=== PATIENT | male | born 1970 | race Caucasian/White ===

== ENCOUNTER 2020-09-07 06:53 | Emergency (ER) | payer BC ==
[2020-09-07] MEDS ORDERED: ONDANSETRON 4 MG/2 ML VIAL ONE (07:17)
[2020-09-07] MEDS ORDERED: MORPHINE 4 MG/ML SYR ONE (07:17)
[2020-09-07 07:26] LABS: Absolute Lymphocytes (CBC) 3.3 K/uL (0.7-4.9); Basophils % 0.8 % (0-1.3); Lymphocytes % 26.1 % (15.3-44.8); RBC Red Blood Cell Count 5.18 M/uL (4.33-5.43)
[2020-09-07] MEDS ORDERED: NA CHLORIDE 0.9% 1,000 ML ONE (07:28)
[2020-09-07 07:29] LABS: Albumin 3.4 g/dL (3.4-5.0); Bilirubin Direct 0.1 mg/dL (0-0.2); Bilirubin Total 0.3 mg/dL (0.2-1.0); Potassium 3.6 mmol/L (3.5-5.1); Protein, Total 6.9 g/dL (6.4-8.2)
[2020-09-07] MEDS ORDERED: MEPERIDINE HCL 50 MG/ML ONE (07:29)
[2020-09-07] MEDS ORDERED: HYDROMORPHONE HCL 1 MG/ML INJ ONE (08:00)
--- NOTE | 2020-09-07 08:28 | RAD REPORT ---
EXAM DESCRIPTION: CTAbdomen Pelvis W Contrast - 09/07/2020 7:31 am CLINICAL HISTORY: Abdominal pain. ABD PAIN COMPARISON: No comparisons TECHNIQUE: Biphasic CT imaging of the abdomen and pelvis was performed with 100 ml non-ionic IV cont rast. All CT scans are performed using dose optimization technique as appropriate and may include automated exposure control or mA/KV adjustment according to patient size. FINDINGS: There is significant motion artifact present. This limits the quality of the examination. The lung bases are clear. The liver, spleen, pancreas, adrenal glands and kidneys are within normal limits. No bowel obstruction, free air, free fluid or abscess. Moderate right-sided colonic stool retention. Appendix is somewhat challenging to localize but no secondary findings of inflammation in the right l ower quadrant. No evidence of significant lymphadenopathy. No suspicious bony findings. IMPRESSION: No acute intra-abdominal or pelvic finding within the limitations of significant motion artifact.
[2020-09-07 08:57] LABS: Basophils % 0.2 % (0-1.3); Hematocrit 41.2 % (39.6-49.0); Lymphocytes % 6.4 % (15.3-44.8); MPV 7.8 fL (7.6-11.3); RBC Red Blood Cell Count 4.93 M/uL (4.33-5.43)
--- NOTE | 2020-09-07 09:30 | ER ---
Nurse's Notes [facility] Name: Everett Kumar Age: 50 yrs Sex: Male : 1970 Arrival Date: 09/07/2020 Time: 06:54 Bed 4 Private MD: Jerzy Moise Diagnosis: Abdominal pain. Leukocytosis Presentation: 09/07 06:57 Chief complaint: Patient states: sudden onset med abdominal pain X 1 hour ago, took his iw BP meds and pain started , denies vomiting or diarrhea. Coronavirus screen: At this time, the client does not indicate any symptoms associated with coronavirus-19. Ebola Screen: Patient negative for fever greater than or equal to 101.5 degrees Fahrenheit, and additional compatible Ebola Virus Disease symptoms Patient denies exposure to infectious person. Patient denies travel to an Ebola-affected area in the 21 days before illness onset. No symptoms or risks identified at this time. Initial Sepsis Screen: Does the patient meet any 2 criteria? No. Patient's initial sepsis screen is negative. Does the patient have a suspected source of infection? No. Patient's initial sepsis screen is negative. Risk Assessment: Do you want to hurt yourself or someone else? Patient reports no desire to harm self or others. Onset of symptoms was September 07, 2020. 06:57 Method Of Arrival: Wheelchair iw 06:57 Acuity: SHAJI 2 iw Historical: - Allergies: 06:59 Levaquin; iw - PMHx: 06:59 Hypertension; iw - PSHx: 06:59 Hernia repair; shoulder; cochlear implant; iw - Immunization history:: Client reports having NOT received the Covid vaccine. - Social history:: Smoking status: Patient denies any tobacco usage or history of. Screenin:18 Abuse screen: Denies threats or abuse. Denies injuries from another. Nutritional jl7 screening: No deficits noted. Tuberculosis screening: No symptoms or risk factors identified. Fall Risk IV access (20 points). Total Smart Fall Scale indicates No Risk (0-24 pts). Assessment: 07:12 Reassessment: Pt moaning, crying, gaurding abdomen, yells "Why does it hurt so bad? jl7 Give me something for the pain." Dr. Baltazar gave VO for 50 mg Demerol IVP, medicated as ordered and pt transported to CT via stretcher. 07:18 General: Appears in no apparent distress. uncomfortable, ill, Behavior is cooperative, jl7 anxious, crying. Pain: Complains of pain in right lower quadrant and left lower quadrant Pain currently is 10 out of 10 on a pain scale. Pain began 2 hours ago. Is continuous. Neuro: Level of Consciousness is awake, alert, obeys commands, Oriented to person, place, time, situation. Cardiovascular: Patient's skin is warm and dry. Respiratory: Airway is patent Respiratory effort is even, unlabored, Respiratory pattern is symmetrical, tachypnea. GI: Abdomen is flat, non-distended, . Abdomen is tender to palpation. Derm: Skin is pink, warm \\T\\ dry. 07:42 Reassessment: Pt returned from CT, moaning and crying, states "It hurts so bad." Dr. vegas7 Giovanny gave VO for 1 mg Dilaudid IVP, medicated as ordered. 08:00 Reassessment: Pt laying in bed, eyes closed, respirations even and unlabored, no signs jl7 of distress noted. 08:33 Reassessment: Dr. Baltazar at bedside discussing results and POC. jl7 Vital Signs: 06:57 BP 141 / 78; Pulse 81; Resp 18 S; Temp 97.6; Pulse Ox 100% on R/A; Weight 99.79 kg; iw Height 6 ft. 6 in. (198.12 cm); Pain 10/10; 07:18 BP 152 / 82; Pulse 85; Resp 21; Pulse Ox 100% ; Pain 10/10; jl7 08:37 BP 141 / 83; Pulse 81; Resp 15; Pulse Ox 95% ; jl7 06:57 Body Mass Index 25.42 (99.79 kg, 198.12 cm) iw ED Course: 06:54 Patient arrived in ED. es 06:54 Jerzy Moise MD is Private Physician. es 06:55 Initial lab(s) drawn, by ED staff, sent to lab. Inserted saline lock: 20 gauge in left jl7 antecubital area, using aseptic technique. 06:58 Triage completed. iw 06:59 Arm band placed on. iw 07:00 Adalberto Baltazar MD is Attending Physician. pkl 07:02 Marilyn Rosario RN is Primary Nurse. jl7 07:18 Patient has correct armband on for positive identification. Bed in low position. Call jl7 light in reach. Side rails up X 1. Pulse ox on. NIBP on. 07:31 CT Abd/Pelvis - IV Contrast Only In Process Unspecified. EDMS 08:37 US Abdomen Limited In Process Unspecified. EDMS 08:47 Repeat lab(s) drawn. by me, sent to lab. jl7 09:41 No provider procedures requiring assistance completed. IV discontinued, intact, jl7 bleeding controlled, No redness/swelling at site. Pressure dressing applied. Administered Medications: 06:55 Drug: Zofran (Ondansetron) 4 mg Route: IVP; Site: left antecubital; jl7 07:18 Follow up: Response: No adverse reaction jl7 06:57 Drug: morphine 4 mg Route: IVP; Site: left antecubital; jl7 07:10 Follow up: Response: Pain is unchanged, physician notified jl7 07:12 Drug: Demerol (meperidine) 50 mg Route: IVP; Site: left antecubital; jl7 07:40 Follow up: Response: No adverse reaction; Pain is unchanged, physician notified jl7 07:15 Drug: NS 0.9% 1000 ml Route: IV; Rate: 1 bolus; Site: left antecubital; jl7 07:42 Drug: Dilaudid (HYDROmorphone) 1 mg Route: IVP; Site: left antecubital; jl7 08:10 Follow up: Response: No adverse reaction; Pain is decreased jl7 Outcome: 09:41 AMA AMA form signed jl7 09:41 Patient left the ED. jl7 Signatures: Dispatcher [employer] Adalberto Adams MD MD pkl Salyer, Edna es Williams, Irene, RN RN Marilyn Art RN RN jl7
--- NOTE | 2020-09-07 09:30 | EDPHYS ---
Physician Documentation [facility] Name: Everett Kumar Age: 50 yrs Sex: Male : 1970 Arrival Date: 09/07/2020 Time: 06:54 Bed 4 Private MD: Jerzy Moise ED Physician Adalberto Baltazar HPI: 09/07 07:07 This 50 yrs old Male presents to ER via Wheelchair with complaints of Abd pkl Pain > 50 y/o. 07:07 The patient presents with abdominal pain that is diffuse. Onset: The symptoms/episode pkl began/occurred just prior to arrival, 1 hour(s) ago. The symptoms do not radiate. Associated signs and symptoms: none. Historical: - Allergies: 06:59 Levaquin; iw - PMHx: :59 Hypertension; iw - PSHx: 06:59 Hernia repair; shoulder; cochlear implant; iw - Immunization history:: Client reports having NOT received the Covid vaccine. - Social history:: Smoking status: Patient denies any tobacco usage or history of. ROS: 07:10 Eyes: Negative for injury, pain, redness, and discharge, ENT: Negative for injury, pkl pain, and discharge, Neck: Negative for injury, pain, and swelling, Cardiovascular: Negative for chest pain, palpitations, and edema, Respiratory: Negative for shortness of breath, cough, wheezing, and pleuritic chest pain. 07:10 Abdomen/GI: Positive for abdominal pain, of the right upper quadrant, left upper quadrant, right lower quadrant and left lower quadrant. 07:10 Back: Negative for injury or acute deformity, acute changes. 07:10 : Negative for urinary symptoms. 07:10 MS/extremity: Negative for acute changes. 07:10 Skin: Negative for rash. 07:10 Neuro: Negative for altered mental status, loss of consciousness. Exam: 07:10 Head/Face: Normocephalic, atraumatic. Eyes: Pupils equal round and reactive to light, pkl extra-ocular motions intact. Lids and lashes normal. Conjunctiva and sclera are non-icteric and not injected. Cornea within normal limits. Periorbital areas with no swelling, redness, or edema. ENT: Nares patent. No nasal discharge, no septal abnormalities noted. Tympanic membranes are normal and external auditory canals are clear. Oropharynx with no redness, swelling, or masses, exudates, or evidence of obstruction, uvula midline. Mucous membranes moist. Neck: Trachea midline, no thyromegaly or masses palpated, and no cervical lymphadenopathy. Supple, full range of motion without nuchal rigidity, or vertebral point tenderness. No Meningismus. Chest/axilla: Normal chest wall appearance and motion. Nontender with no deformity. No lesions are appreciated. Cardiovascular: Regular rate and rhythm with a normal S1 and S2. No gallops, murmurs, or rubs. Normal PMI, no JVD. No pulse deficits. Respiratory: Lungs have equal breath sounds bilaterally, clear to auscultation and percussion. No rales, rhonchi or wheezes noted. No increased work of breathing, no retractions or nasal flaring. 07:10 Abdomen/GI: Bowel sounds: normal, Palpation: moderate abdominal tenderness, voluntary guarding, is elicited in the right upper quadrant, left upper quadrant, right lower quadrant and left lower quadrant. 07:10 Back: Exam negative for acute changes. 07:10 : Exam negative for acute changes. 07:10 Musculoskeletal/extremity: Exam is negative for acute changes. 07:10 Skin: Exam negative for rash. 07:10 Neuro: Orientation: is normal, Mentation: is normal, Cranial nerves: grossly normal, Motor: is normal. Vital Signs: 06:57 BP 141 / 78; Pulse 81; Resp 18 S; Temp 97.6; Pulse Ox 100% on R/A; Weight 99.79 kg; iw Height 6 ft. 6 in. (198.12 cm); Pain 10/10; 07:18 BP 152 / 82; Pulse 85; Resp 21; Pulse Ox 100% ; Pain 10/10; jl7 08:37 BP 141 / 83; Pulse 81; Resp 15; Pulse Ox 95% ; jl7 06:57 Body Mass Index 25.42 (99.79 kg, 198.12 cm) iw MDM: 07:00 Patient medically screened. pkl 09:23 Data reviewed: vital signs, nurses notes, lab test result(s), radiologic studies, CT pkl scan. ED course: Discussed lab and CT Scan results with patient and . Advised admission for observation and further evaluations. Patient refused admission. Signed AMA. Advised to return if symptoms are worse. Patient and understood instructions. 09/07 06:58 Order name: Basic Metabolic Panel; Complete Time: 08:07 ma2 09/07 06:58 Order name: CBC with Diff; Complete Time: 08:07 ma2 09/07 06:58 Order name: Hepatic Function; Complete Time: 08:07 ma2 09/07 06:58 Order name: Lipase; Complete Time: 08:07 ma2 09/07 07:08 Order name: Creatinine, Serum pkl 09/07 08:41 Order name: CBC with Diff pkl 09/07 06:58 Order name: CT Abd/Pelvis - IV Contrast Only; Complete Time: 08:34 ma2 09/07 08:09 Order name: US Abdomen Limited pkl 09/07 08:41 Order name: CBC with Automated Diff; Complete Time: 09:22 EDMS 09/07 06:58 Order name: IV Saline Lock; Complete Time: 07:18 ma2 09/07 06:58 Order name: Labs collected and sent; Complete Time: 07:18 ma2 Administered Medications: 06:55 Drug: Zofran (Ondansetron) 4 mg Route: IVP; Site: left antecubital; jl7 07:18 Follow up: Response: No adverse reaction jl7 06:57 Drug: morphine 4 mg Route: IVP; Site: left antecubital; jl7 07:10 Follow up: Response: Pain is unchanged, physician notified jl7 07:12 Drug: Demerol (meperidine) 50 mg Route: IVP; Site: left antecubital; jl7 07:40 Follow up: Response: No adverse reaction; Pain is unchanged, physician notified jl7 07:15 Drug: NS 0.9% 1000 ml Route: IV; Rate: 1 bolus; Site: left antecubital; jl7 07:42 Drug: Dilaudid (HYDROmorphone) 1 mg Route: IVP; Site: left antecubital; jl7 08:10 Follow up: Response: No adverse reaction; Pain is decreased jl7 Disposition: 09/07/20 09:29 Patient has left against medical advice. Impression: Abdominal pain. Leukocytosis. - Patients states they are going to Home. - Condition is Stable. SBAR form form. Follow up: Private Physician; When: Today; Reason: Re-evaluation by your physician. - Problem is new. - Symptoms have improved. Signatures: Dispatcher [employer] Adalberto Adams MD MD pkl Tracy Ley RN RN iw Marilyn Rosario RN RN jl7 Nyasia Warren MD MD ma2 Corrections: (The following items were deleted from the chart) 09:41 09:29 09/07/2020 09:29 Patients has left against medical advice. Impression: Abdominal jl7 pain. Leukocytosis. Patient states they are going to Home. Condition is Stable. Forms are SBAR form. Follow up: Private Physician; When: Today; Reason: Re-evaluation by your physician. Problem is new. Symptoms have improved. pkl
--- NOTE | 2020-09-07 10:36 | RAD REPORT ---
EXAM DESCRIPTION: US - Abdomen Exam Limited - 09/07/2020 8:37 am CLINICAL HISTORY: elevated liver functions;Abd pain COMPARISON: No comparisons FINDINGS: The gallbladder demonstrates no gallstones. No pericholecystic fluid or gallbladder wall t hickening. The common bile duct is normal measuring 2 mm.. The liver demonstrates no findings of intrahepatic biliary dilatation. IMPRESSION: Unremarkable examination.
[2020-09-07 10:42] VITALS: TEMP 97.6
[2020-09-07 10:45] VITALS: BP 141/83; O2SAT 95
== END 2020-09-07 09:41 | disposition left against medical advice (07) ==
LOC: ER 06:53
DX: R10.84 Generalized abdominal pain (principal); D72.829 Elevated white blood cell count, unspecified; Z53.29 Procedure and treatment not carried out because of patient's decision for other reasons; I10 Essential (primary) hypertension; Z96.21 Cochlear implant status
CPT/HCPCS: 85025 ×2; 80048; 36415; 80076; 83690; 74177; 76705; Q9967; J2175; J1170; J7030; J2405; 96374; 96375; 99284

== ENCOUNTER 2020-09-08 01:35 | Inpatient (IN) | payer BC ==
[2020-09-08] MEDS ORDERED: MORPHINE 4 MG/ML SYR ONE (02:46)
[2020-09-08] MEDS ORDERED: MAGNES/ALUMIN/SIMET 30ML UCUP ONE (02:46)
[2020-09-08] MEDS ORDERED: ONDANSETRON 4 MG/2 ML VIAL ONE (02:46)
[2020-09-08] MEDS ORDERED: FAMOTIDINE 20 MG/2 ML VIAL IV ONE (02:47)
[2020-09-08] MEDS ORDERED: NA CHLORIDE 0.9% 1,000 ML ONE ×2 (02:47→05:15)
[2020-09-08] MEDS ORDERED: LIDOCAINE VISCOUS 2% SOLN 15 ML UDC ONE (02:47)
[2020-09-08 02:57] LABS: Absolute Lymphocytes (CBC) 1.1 K/uL (0.7-4.9); Basophils % 0.2 % (0-1.3); Hematocrit 49.4 % (39.6-49.0); MPV 8.4 fL (7.6-11.3); RBC Red Blood Cell Count 5.89 M/uL (4.33-5.43)
[2020-09-08 03:06] LABS: Albumin 3.5 g/dL (3.4-5.0); Bilirubin Direct 0.1 mg/dL (0-0.2); Bilirubin Total 0.5 mg/dL (0.2-1.0); Potassium 3.9 mmol/L (3.5-5.1); Protein, Total 7.3 g/dL (6.4-8.2)
--- NOTE | 2020-09-08 04:18 | EDPHYS ---
Physician Documentation [facility] Name: Everett Kumar Age: 50 yrs Sex: Male : 1970 Arrival Date: 09/08/2020 Time: 01:40 Bed 7 Private MD: ED Physician Nyasia Warren HPI: 09/08 02:22 This 50 yrs old Male presents to ER via Wheelchair with complaints of ma2 Abdominal Pain. 02:22 Onset: The symptoms/episode began/occurred gradually, 1 day(s) ago. Associated signs ma2 and symptoms: Pertinent positives: vomiting, Pertinent negatives: dysuria, hematuria, incontinence, nausea. Severity of symptoms: At their worst the symptoms were moderate, in the emergency department the symptoms are unchanged. The patient has experienced a previous episode. patient was here with epigastric pain and was offered to be admitted for elevated wbc and he wanted to go home . Historical: - Allergies: 01:55 Levaquin; ea - PMHx: 01:55 Hypertension; ea - PSHx: 01:55 cochlear implant; shoulder; Hernia repair; ea - Immunization history:: Adult Immunizations unknown. - Social history:: Smoking status: Patient denies any tobacco usage or history of. - Family history:: not pertinent. ROS: 02:22 Constitutional: Negative for fever, chills, and weight loss. ma2 02:22 All other systems are negative. Exam: 02:22 Constitutional: This is a well developed, well nourished patient who is awake, alert, ma2 and in no acute distress. ENT: Nares patent. No nasal discharge, no septal abnormalities noted. Tympanic membranes are normal and external auditory canals are clear. Oropharynx with no redness, swelling, or masses, exudates, or evidence of obstruction, uvula midline. Mucous membranes moist. Neck: Trachea midline, no thyromegaly or masses palpated, and no cervical lymphadenopathy. Supple, full range of motion without nuchal rigidity, or vertebral point tenderness. No Meningismus. Chest/axilla: Normal chest wall appearance and motion. Nontender with no deformity. No lesions are appreciated. Cardiovascular: Regular rate and rhythm with a normal S1 and S2. No gallops, murmurs, or rubs. Normal PMI, no JVD. No pulse deficits. Respiratory: Lungs have equal breath sounds bilaterally, clear to auscultation and percussion. No rales, rhonchi or wheezes noted. No increased work of breathing, no retractions or nasal flaring. Abdomen/GI: Soft, non-tender, with normal bowel sounds. No distension or tympany. No guarding or rebound. No evidence of tenderness throughout. Skin: Warm, dry with normal turgor. Normal color with no rashes, no lesions, and no evidence of cellulitis. MS/ Extremity: Pulses equal, no cyanosis. Neurovascular intact. Full, normal range of motion. Neuro: Awake and alert, GCS 15, oriented to person, place, time, and situation. Cranial nerves II-XII grossly intact. Motor strength 5/5 in all extremities. Sensory grossly intact. Cerebellar exam normal. Normal gait. Vital Signs: 01:57 BP 142 / 91; Pulse 104; Resp 18 S; Temp 98.7; Pulse Ox 96% on R/A; Weight 99.79 kg (R); bb Height 6 ft. 6 in. (198.12 cm) (R); Pain 8/10; 01:57 BP 142 / 91; Pulse 90; Resp 18; Temp 98.7; Pulse Ox 97% on R/A; ea 02:30 BP 148 / 79; Pulse 89; Resp 18; Pulse Ox 98% ; ea 03:30 BP 154 / 77; Pulse 80; Resp 19; Pulse Ox 97% ; ea 04:00 BP 158 / 89; Pulse 89; Resp 18; Pulse Ox 97% on R/A; ea 01:57 Body Mass Index 25.42 (99.79 kg, 198.12 cm) MDM: 01:57 Patient medically screened. ak2 02:22 Differential diagnosis: sprain, gastritis vs pancreatitis vs gerd. ma2 04:14 Data reviewed: vital signs, nurses notes. Counseling: I had a detailed discussion with ma2 the patient and/or guardian regarding: the historical points, exam findings, and any diagnostic results supporting the discharge/admit diagnosis, the presence of at least one elevated blood pressure reading (>120/80) during this emergency department visit, the need for further work-up and treatment in the hospital. 04:16 Response to treatment: There is no appreciated change of the patient's symptoms at this [facility] time. Response to treatment: There is no appreciated change of the patient's symptoms at this time, the patient's symptoms have mildly improved after treatment. ED course: patient was here earlier today ct was unremarkable, pain is epigastric, will admit for intractable pain and vomiting. discussed [facility] hospitalist Sylvester . 09/08 01:57 Order name: Basic Metabolic Panel; Complete Time: 03:54 ma2 09/08 01:57 Order name: CBC with Diff ak2 09/08 01:57 Order name: Hepatic Function; Complete Time: 03:54 ak2 09/08 01:57 Order name: Lipase; Complete Time: 03:54 ak2 09/08 03:00 Order name: Manual Differential [facility] 09/08 05:41 Order name: COVID-19 : Document "Date of Symptom Onset" if Symptomatic. [facility] 09/08 04:14 Order name: Abdomen 1 View (KUB) XRAY [facility] 09/08 06:02 Order name: CORONAVIRUS [facility] 09/08 06:58 Order name: SARS-COV-2 RT PCR [facility] 09/08 01:57 Order name: IV Saline Lock; Complete Time: 02:50 ak2 09/08 01:57 Order name: Labs collected and sent; Complete Time: 02:50 ma2 Administered Medications: 02:34 Drug: NS 0.9% 1000 ml Route: IV; Rate: 1 bolus; Site: right forearm; jm8 05:25 Follow up: IV Status: Completed infusion; IV Intake: 1000ml 8 02:34 Drug: Pepcid (famotidine) 20 mg Route: IVP; Site: right forearm; jm8 05:25 Follow up: Response: No adverse reaction jm8 02:34 Drug: GI Cocktail without - (Maalox Suspension 30 ml, Lidocaine Liquid 2 % 15 jm8 ml) Route: PO; 05:26 Follow up: Response: No adverse reaction jm8 02:34 Drug: Zofran (Ondansetron) 4 mg Route: IVP; Site: right forearm; jm8 05:26 Follow up: Response: No adverse reaction jm8 02:34 Drug: morphine 4 mg Route: IVP; Site: right forearm; jm8 05:26 Follow up: Response: No adverse reaction; Pain is decreased jm8 04:50 Drug: NS 0.9% 1000 ml Route: IV; Rate: 1 bolus; Site: right antecubital; ea 04:50 Drug: Dilaudid (HYDROmorphone) 1 mg Route: IVP; Site: right antecubital; ea 05:48 Follow up: Response: No adverse reaction; Pain is decreased ea 05:07 Drug: Fleet Bisacodyl Enema (10 mg/30mL) 10 mg Route: FL; ea 05:23 Follow up: Response: No adverse reaction; No change in condition [facility] 05:22 Drug: Bentyl (dicyclomine) 20 mg Route: PO; [facility] 05:48 Follow up: Response: No adverse reaction ea 05:22 Drug: Rocephin (cefTRIAXone) 1 grams Route: IV; Rate: calculated rate; Site: right jm8 forearm; 05:25 Follow up: IV Status: Completed infusion [facility] 05:23 Drug: Flagyl (metroNIDAZOLE) 500 mg Volume: 100 ml; Route: IVPB; Rate: 200 ml/hr; 8 Infused Over: 30 mins; Site: right forearm; Disposition: 09/08/20 04:18 Hospitalization ordered by Mayur Urias for Observation. Preliminary diagnosis is Upper abdominal pain, unspecified. - Bed requested for Telemetry/MedSurg (observation). - Status is Observation. em - Condition is Stable. - Problem is new. - Symptoms are unchanged. Signatures: Dispatcher [employer] Peña Syed, RN Joby Wallace em1 Sylvester Barnard, RESPIRATORY PRACTITIONER-C RESPIRATORY PRACTITIONER-Cla1 Socorro Diez RN RN ea Alzahri, Mohammad, MD MD ma2 Malcaba, Joseph RN KATI jm8 Corrections: (The following items were deleted from the chart) 07:31 04:18 Hospitalization Ordered by Mayur Urias DO for Observation. Preliminary em1 diagnosis is Upper abdominal pain, unspecified. Bed requested for Telemetry/MedSurg (observation). Status is Observation. Condition is Stable. Problem is new. Symptoms are unchanged. ma2 08:35 07:31 09/08/2020 04:18 Hospitalization Ordered by Mayur Urias DO for Observation. em Preliminary diagnosis is Upper abdominal pain, unspecified. Bed requested for Telemetry/MedSurg (observation). Status is Observation. Condition is Stable. Problem is new. Symptoms are unchanged. em1
--- NOTE | 2020-09-08 04:18 | ER ---
Nurse's Notes [facility] Name: Everett Kumar Age: 50 yrs Sex: Male : 1970 Arrival Date: 09/08/2020 Time: 01:40 Bed 7 Private MD: Diagnosis: Upper abdominal pain, unspecified Presentation: 09/08 01:55 Ebola Screen: No symptoms or risks identified at this time. Risk Assessment: Do you ea want to hurt yourself or someone else? Patient reports no desire to harm self or others. Onset of symptoms was September 08, 2020. 01:57 Chief complaint: Patient states: he was seen here this morning for abdominal pain and bb the pain is still there cramping and intense. Coronavirus screen: At this time, the client does not indicate any symptoms associated with coronavirus-19. Initial Sepsis Screen: Does the patient meet any 2 criteria? No. Patient's initial sepsis screen is negative. Does the patient have a suspected source of infection? No. Patient's initial sepsis screen is negative. 01:57 Method Of Arrival: Wheelchair bb 01:57 Acuity: SHAJI 3 bb 01:58 Initial Sepsis Screen: Does the patient meet any 2 criteria? No. Patient's initial ea sepsis screen is negative. Does the patient have a suspected source of infection? No. Patient's initial sepsis screen is negative. 01:58 Method Of Arrival: Wheelchair ea 01:58 Acuity: SHAJI 3 ea Historical: - Allergies: 01:55 Levaquin; ea - PMHx: 01:55 Hypertension; ea - PSHx: 01:55 cochlear implant; shoulder; Hernia repair; ea - Immunization history:: Adult Immunizations unknown. - Social history:: Smoking status: Patient denies any tobacco usage or history of. - Family history:: not pertinent. Screenin:50 Abuse screen: Denies threats or abuse. Nutritional screening: No deficits noted. ea Tuberculosis screening: No symptoms or risk factors identified. Fall Risk None identified. Assessment: 01:56 General: Appears uncomfortable, Behavior is appropriate for age. Pain: Complains of ea pain in abdomen. Neuro: Level of Consciousness is awake, alert, obeys commands, Oriented to person, place, time. Cardiovascular: Patient's skin is warm and dry. Respiratory: Airway is patent Respiratory effort is even, unlabored, Respiratory pattern is regular, symmetrical. GI: Abdomen is non-distended. Derm: Skin is pink, warm \T\ dry. 02:30 Reassessment: Patient and/or family updated on plan of care and expected duration. Pain ea level reassessed. Patient is alert, oriented x 3, equal unlabored respirations, skin warm/dry/pink. 03:30 Reassessment: Patient and/or family updated on plan of care and expected duration. Pain ea level reassessed. Patient is alert, oriented x 3, equal unlabored respirations, skin warm/dry/pink. 04:50 Reassessment: Patient and/or family updated on plan of care and expected duration. Pain ea level reassessed. Patient is alert, oriented x 3, equal unlabored respirations, skin warm/dry/pink. 05:45 Reassessment: Pt resting with eyes closed, respirations even and unlabored, chest ea expansions even and symmetrical. 06:12 Reassessment: Patient and/or family updated on plan of care and expected duration. Pain ea level reassessed. Patient is alert, oriented x 3, equal unlabored respirations, skin warm/dry/pink. Hospitalist at bedside updating pt on plan of care. Vital Signs: 01:57 BP 142 / 91; Pulse 104; Resp 18 S; Temp 98.7; Pulse Ox 96% on R/A; Weight 99.79 kg (R); bb Height 6 ft. 6 in. (198.12 cm) (R); Pain 8/10; 01:57 BP 142 / 91; Pulse 90; Resp 18; Temp 98.7; Pulse Ox 97% on R/A; ea 02:30 BP 148 / 79; Pulse 89; Resp 18; Pulse Ox 98% ; ea 03:30 BP 154 / 77; Pulse 80; Resp 19; Pulse Ox 97% ; ea 04:00 BP 158 / 89; Pulse 89; Resp 18; Pulse Ox 97% on R/A; ea 01:57 Body Mass Index 25.42 (99.79 kg, 198.12 cm) bb ED Course: 01:40 Patient arrived in ED. bp1 01:52 Socorro Diez, RN is Primary Nurse. ea 01:54 Arm band placed on right wrist. Patient placed in an exam room, on a stretcher, on ea pulse oximetry. 01:54 Patient has correct armband on for positive identification. Bed in low position. Call ea light in reach. 01:56 Nyasia Warren MD is Attending Physician. ma2 01:56 Inserted saline lock: 20 gauge in right antecubital area, using aseptic technique. ea Blood collected. 01:58 Triage completed. ea 04:18 Mayur Urias DO is Hospitalizing Provider. ma2 04:42 Abdomen 1 View (KUB) XRAY In Process Unspecified. EDMS 05:44 No provider procedures requiring assistance completed. Patient admitted, IV remains in ea place. 07:35 Primary Nurse role handed off by Socorro Diez RN sv Administered Medications: 02:34 Drug: NS 0.9% 1000 ml Route: IV; Rate: 1 bolus; Site: right forearm; [facility] 05:25 Follow up: IV Status: Completed infusion; IV Intake: 1000ml 8 02:34 Drug: Pepcid (famotidine) 20 mg Route: IVP; Site: right forearm; 8 05:25 Follow up: Response: No adverse reaction 8 02:34 Drug: GI Cocktail without - (Maalox Suspension 30 ml, Lidocaine Liquid 2 % 15 jm8 ml) Route: PO; 05:26 Follow up: Response: No adverse reaction jm8 02:34 Drug: Zofran (Ondansetron) 4 mg Route: IVP; Site: right forearm; jm8 05:26 Follow up: Response: No adverse reaction 8 02:34 Drug: morphine 4 mg Route: IVP; Site: right forearm; 8 05:26 Follow up: Response: No adverse reaction; Pain is decreased jm8 04:50 Drug: NS 0.9% 1000 ml Route: IV; Rate: 1 bolus; Site: right antecubital; ea 04:50 Drug: Dilaudid (HYDROmorphone) 1 mg Route: IVP; Site: right antecubital; ea 05:48 Follow up: Response: No adverse reaction; Pain is decreased ea 05:07 Drug: Fleet Bisacodyl Enema (10 mg/30mL) 10 mg Route: VA; ea 05:23 Follow up: Response: No adverse reaction; No change in condition [facility] 05:22 Drug: Bentyl (dicyclomine) 20 mg Route: PO; jm8 05:48 Follow up: Response: No adverse reaction ea 05:22 Drug: Rocephin (cefTRIAXone) 1 grams Route: IV; Rate: calculated rate; Site: right jm8 forearm; 05:25 Follow up: IV Status: Completed infusion 8 05:23 Drug: Flagyl (metroNIDAZOLE) 500 mg Volume: 100 ml; Route: IVPB; Rate: 200 ml/hr; jm8 Infused Over: 30 mins; Site: right forearm; Intake: 05:25 IV: 1000ml; Total: 1000ml. [email or web address] Outcome: 04:18 Decision to Hospitalize by Provider. ma2 05:44 Instructed on the need for admit, Demonstrated understanding of instructions. ea 08:24 Admitted to Tele accompanied by tech, via wheelchair, room 228, with chart, Report em called to KATI Rivera 08:24 Condition: stable 08:35 Patient left the ED. em Signatures: Dispatcher [employer] Aarti Coleman RN RN sv Munoz, Edgar, RN RN em Ballard, Brenda, RN RN bb Antunez, Elena, RN RN ea Alzahri, Mohammad, MD MD ma2 Paniauga, Brittany bp1 Malcaba, Joseph, RN RN jm8
[2020-09-08 04:26] LABS: Blood Morphology Comment NOT SEEN (NOT SEEN); Platelet Estimate ADEQ
--- NOTE | 2020-09-08 05:06 | P.HP ---
Certification for Inpatient Patient admitted to: Observation With expected LOS: <2 Midnights Patient will require the following post-hospital care: None Practitioner: I am a practitioner with admitting privileges, knowledge of patient current condition, hospital course, and medical plan of care. Services: Services provided to patient in accordance with Admission requirements found in Title 42 Section 412.3 of the Code of Federal Regulations Patient History Date of Service: 09/08/20 Reason for admission: Intractable abdominal pain, vomiting History of Present Illness: 50-year-old male with history of hypertension presents emergency department for abdominal pain, vomiting. Patient was seen earlier today for similar symptoms and noted to have leukocytosis, patient had ultrasound and CT abdomen pelvis with contrast which were both negative for any acute findings. Patient elected to leave against medical advice at that time and tried to rest at home. Patient did okay throughout the day but this evening began having severe abdominal pain again along with vomiting. Patient reports severe spasm/cramping like pain throughout the abdomen as well as abdominal distension. Patient again evaluated the emergency department, labs significant for white blood cell count 15.9 GFR 79 KUB obtained which is pending radiology interpretation at this time. ED provider wishes to admit patient for leukocytosis, intractable abdominal pain/vomiting and distention. - Past Medical/Surgical History -: Hypertension -: Bilateral cochlear implants -: Bilateral hernia repairs -: Left shoulder surgery x2 Psychosocial/ Personal History: Patient works in the [employer], lives with his - Family History Mother -: Heart disease - Social History Smoking Status: Never smoker Alcohol use: No CD- Drugs: No Caffeine use: Yes Place of Residence: Home Review of Systems 10-point ROS is otherwise unremarkable Gastrointestinal: Nausea, Vomiting, Abdominal Pain, Constipation Physical Examination - Physical Exam General: Alert, In no apparent distress, Oriented x3 HEENT: Atraumatic, PERRLA, Mucous membr. moist/pink Neck: Supple, 2+ carotid pulse no bruit, No LAD Respiratory: Clear to auscultation bilaterally, Normal air movement Cardiovascular: Regular rate/rhythm, Normal S1 S2 Gastrointestinal: Hypoactive, Distended (Mild abdominal distention noted), Tenderness (Mild to moderate generalized abdominal tenderness on exam) Musculoskeletal: No contractures, No erythema, No tenderness Integumentary: No rashes Neurological: Normal speech, Normal strength at 5/5 x4 extr, Normal tone, Normal affect - Studies Laboratory Data (last 24 hrs) 09/08/20 02:04: WBC 15.90 H, Hgb 16.0 D, Hct 49.4 H D, Plt Count 293 09/08/20 02:04: Sodium 140, Potassium 3.9, BUN 11, Creatinine 0.99, Glucose 103, Total Bilirubin 0.5, AST 34, ALT 83 H, Alkaline Phosphatase 32 L, Lipase 234 Assessment and Plan - Plan Assessment Intractable abdominal pain, vomiting, distention secondary to suspected gastroenteritis Hypertension Plan Intractable abdominal pain, vomiting, distention secondary to suspected gastroenteritis: Leukocytosis also noted, will continue with Rocephin, Flagyl at this time. NPO, will provide patient with medications for pain, anti emetics. Will start patient on Protonix, p.r.n. Bentyl. Will review KUB that is pending, abdominal x-ray ordered for tomorrow as well. Patient may be developing ileus, if his distension/vomiting does not improve he may require NG tube insertion. Consult general surgery as necessary. Hypertension: Obtain and continue home medications when appropriate. Discharge Plan: Home Plan to discharge in: 24 Hours - Advance Directives Does patient have a Living Will: No Does patient have a Durable POA for Healthcare: No - Code Status/Comfort Care Code Status Assessed: Yes (Full code) Critical Care: No Time Spent Managing Pts Care (In Minutes): 55
[2020-09-08] MEDS ORDERED: HYDROMORPHONE HCL 1 MG/ML INJ ONE (05:15)
[2020-09-08] MEDS ORDERED: FLEET ENEMA ADULT PR ONE (05:15)
[2020-09-08] MEDS ORDERED: DICYCLOMINE HCL 10 MG CAP ONE (05:37)
[2020-09-08] MEDS ORDERED: CEFTRIAXONE/SWI 1gm 1 GM/10 ML SYR ONE (05:37)
[2020-09-08] MEDS ORDERED: METRONIDAZOLE 500mg IVPB 500 MG/100 ML BAG IV ONE (05:37)
[2020-09-08] MEDS ORDERED: SODIUM CHLORIDE 0.9% 10ML INJ IV PRN (07:27)
[2020-09-08] MEDS ORDERED: NA CHLORIDE 0.9% 1,000 ML IV SCH ×2 (07:27→15:53)
[2020-09-08] MEDS: MORPHINE 2 MG/ML SYR IV PRN ×3 (07:37→23:56)
[2020-09-08] MEDS ORDERED: MORPHINE 2 MG/ML SYR ONE (07:52)
[2020-09-08] MEDS ORDERED: CEFTRIAXONE 1 GM/NS 50 ML 1 GM/50 ML BAG IV SCH (09:00)
[2020-09-08] MEDS ORDERED: PANTOPRAZOLE 40 MG INJ IVP SCH (09:00)
[2020-09-08] MEDS ORDERED: METRONIDAZOLE 500mg IVPB 500 MG/100 ML BAG IV SCH (09:00)
--- NOTE | 2020-09-08 09:15 | RAD REPORT ---
EXAM DESCRIPTION: RAD - Abdomen 1 View (KUB) - 09/08/2020 4:42 am CLINICAL HISTORY: constipation ;Abd pain Pain FINDINGS: Several dilated small bowel loops in the upper abdomen. This may represent focal ileus or less likely developing obstruction. No free intraperitoneal air seen. Significant stool is present in the colon. Followup plain radiographs would be recommended in 24-48 h ours.
[2020-09-08] MEDS ORDERED: TRAMADOL HCL 50 MG TAB PO PRN (09:35)
[2020-09-08] MEDS: HYDROCODONE/APAP 7.5/325 MG TAB PO PRN (10:01)
[2020-09-08] MEDS: ENOXAPARIN 40 MG/0.4 ML SQ SCH (10:03)
[2020-09-08] MEDS: DICYCLOMINE HCL 10 MG CAP PO PRN (10:17)
[2020-09-08] MEDS ORDERED: HYDROMORPHONE HCL 0.5 MG/0.5 ML INJ IV ONE (10:33)
[2020-09-08] MEDS: ONDANSETRON 4 MG/2 ML VIAL IV PRN ×2 (10:51→20:06)
[2020-09-08] MEDS ORDERED: LORazepam 2 MG/ML VIAL IV ONE (13:06)
[2020-09-08] MEDS ORDERED: HYDROMORPHONE HCL 2 MG/ML inj IV ONE (13:06)
--- NOTE | 2020-09-08 13:17 | CON ---
Date of Consultation: 09/08/2020 Brief Hpi: The patient is a 50-year-old male with a history of hypertension, who presents to Emergency Department with abdominal pain, nausea, and vomiting beginning yesterday. He came to [facility] emergency room on that particular occasion, had a CT scan of the abdomen and pelvis with contrast, which were both negative for any acute findings. He elected to leave at that time and went home. He did okay throughout the day, but got significantly worse and as such, came to the emergency room wit h the above-stated complaints. He stated this whole episode began when he ate some barbecue provided by a catering service to his facility as well as some uncooked cookies he felt and he has had nausea , vomiting, and no bowel function since yesterday. He normally has 4 to 5 bowel movements a day, whi ch are normally small in size and quality. He is very meticulous about his diet he states. Past Medical History: Significant for hypertension; bilateral cochlear implants; bilateral hernia re pairs, inguinal; left shoulder surgery x2. Social History: He works at a plant. Lives with his . His mother had heart disease. He denies smoking, alcohol, recreational drug use. Review of Systems: Ten-point review of systems other than HPI, he denies. Physical Examination: Vital Signs: At the time examination, his vital signs were; BMI of 25.4, his blood pressure 159/88, pulse is 89, respiratory rate 19, temperature 98.6. His SpO2 96% on room air. General: He is awake, alert, oriented. Psychiatric: He is appropriate, conversive. HEENT: He is normocephalic. Sclerae anicteric. His mucous membranes are moist. His oropharynx is clear. He has an NG tube in place with green effluent in the canister. Neck: Supple without JVD. Chest: Normal expansion and excursion. Cardiovascular: Regular rate and rhythm. Pulmonary: Clear to auscultation bilaterally. Abdomen: Soft with mild global tenderness to palpation. No rebound. No guarding. No focal periton itis. He has an epigastric midline ventral abdominal hernia with diastasis. He is somewhat tympanit ic on abdominal exam. No peritoneal signs. No guarding. Extremities: No clubbing, cyanosis, edema. SKIN: Warm, dry. Laboratory Data: Reveals a white blood count of 15.9, hemoglobin is 16.0, hematocrit 49.4, platelet count is 293, neutrophils 86%. Sodium 140, potassium 3.9, chloride 106, carbon dioxide 27, BUN 11, c reatinine 0.9, glucose is 103, calcium 8.7, total bilirubin 0.5, direct bilirubin 0.1, AST 34, ALT 83 , alk phos is 32, lipase is 234. Procal is less than 0.05. SARs/COVID-19 is negative. He had imagi ng performed, which included a KUB x-ray on 09/08 officially read as several dilated small bowel loop s in the upper abdomen. They may represent focal ileus or less likely developing obstruction. No fr ee peritoneal air. Significant stool is present in the colon. He had a CT scan of the abdomen and p marlen on 09/07 which was officially read as no acute intraabdominal pelvic findings with limitations. Significant motion artifact. He had an abdominal ultrasound on 09/07 officially read as unremarkab le exam. Gallbladder demonstrates no gallstones, pericholecystic fluid, gallbladder wall thickening. The common bile duct is normal. Liver demonstrates no findings of intrahepatic biliary ductal dila tation. Assessment And Plan: This is a 50-year-old male who comes in with signs and symptoms of likely enter itis possibly due to food contamination: 1.IV fluid hydration. 2.Electrolyte correction. 3.Serial abdominal exams. 4.Medical management. 5.The patient does not have a surgical indication at this point. As such, continue NG tube decompre ssion and we will evaluate him on an ongoing basis with serial exams. I explained the risks, benefit s, and alternatives of the above stated plan. The patient agrees to proceed as indicated. LATRELL/SHANI Voice ID: [id number] Report ID: [id number]
[2020-09-08] MEDS ORDERED: HYDROMORPHONE HCL 2 MG/ML inj ONE (13:29)
[2020-09-08] MEDS ORDERED: NA CHLORIDE 0.9% 1,000 ML IV ONE (14:39)
[2020-09-08 14:47] VITALS: BMI 25.4
--- NOTE | 2020-09-08 15:02 | RAD REPORT ---
EXAM DESCRIPTION: CT - CT ANGIO ABD/PELVIS W CONTRAST - 09/08/2020 1:52 pm CLINICAL HISTORY: severe abdominal pain COMPARISON: Abdomen Pelvis W Contrast dated 09/07/2020; CTSTONE PROTOCOL dated 11/25/2014 TECHNIQUE: During dynamic enhancement using 150 milliliters nonionic IV contrast, axial 3 millimeter thick images of the abdomen and pelvis were obtained as a CT angio protocol study. Sagittal and esteban nal reformatted images were generated and reviewed. The CT scan was performed using dose optimization techniques as appropriate to a performed exam incl uding one or more of the following: Automated exposure control, adjustment of the mA and/or kV accord ing to patient size (this includes techniques or standardized protocols for targeted exams where dose is matched to indication/reason for exam) and use of iterative reconstruction technique. FINDINGS: No aortic aneurysm or focal aortic abnormality. The celiac, SMA and ANAND vasculature are un remarkable. No suspicion for mesenteric ischemia. Single renal artery supply each kidney with no abno rmality. Iliac vasculature unremarkable as well. No gross IVC abnormality seen. Portal vein and splenic vein cannot be optimally evaluated on a CT ang io protocol study. The liver, spleen, pancreas, gallbladder, biliary tree, renal parenchyma and adrenal glands show no s uspicious findings. Slight hyperdensity of the gallbladder lumen is probably remnant vicarious contra st excretion from the prior day CT study. CT angio protocol study is not optimal for solid visceral a ssessment. Small amount of ascites is present. This is in the dependent portion of the pelvis and around the spl een. No focal splenic parenchymal process. Stomach is partially decompressed with a small amount of fluid present. This limits assessment. Gastr itis/antritis cannot be excluded. Duodenum and proximal portions of the jejunum are normal in diameter. Multiple dilated small bowel lo ops are present from distal jejunum to at least the mid ileum level. Terminal ileum is normal in diam eter. There is some fecalization of the terminal ileum bowel content. A normal appendix is not identi fiable on either the current or the prior day study. The on opacified bowel loops near the tip of the cecum and ileocecal valve appear to be small bowel loops. Appendicitis is not felt to be likely give n the constellation of findings. The 2015 CT also failed to identify a normal appendix. No free air or pneumatosis. Patient has minimal subcutaneous air in the right mid abdomen probably fr om subcu heparin injections. Findings discussed at length and images reviewed with Dr. Chao. IMPRESSION: Multiple dilated small bowel loops from distal jejunum to mid ileum level. An abrupt tra nsition or obstructing mass is not identifiable. Patient has no history of intraabdominal surgery nancy t might suggest adhesion or internal hernia etiology. No free air, pneumatosis, abscess or other surgically emergent finding. A normal appendix is not identifiable. Normal appendix was not visualized on either the prior day CT study nor the 2014 CT study. Small amount of free intraperitoneal fluid. Most of the fluid has accumulated around the spleen. Ther e are no focal splenic parenchymal abnormalities. No arterial abnormality identified.
[2020-09-08 15:40] LABS: Urine Appearance CLEAR (Clear); Urine Bilirubin NEGATIVE (Negative); Urine Blood NEGATIVE (Negative); Urine Color YELLOW (Yellow); Urine Glucose NEGATIVE (Negative); Urine Protein 1+ (Negative); Urine Specific Gravity >=1.030 (1.005-1.030); Urine Urobilinogen 0.2 mg/dL (0.2-1.0); Urine pH 6.5 (5.0-7.0)
[2020-09-08 15:44] LABS: Urine Microscopic Reflex ORDER UMIC
[2020-09-08 15:49] LABS: Urine Bacteria <20 /HPF (NONE SEEN); Urine Coarse Granular Casts 0-5 /LPF (NONE SEEN); Urine Mucus 2+ /HPF (NONE SEEN); Urine RBC <5 /HPF (NONE SEEN)
--- NOTE | 2020-09-08 15:52 | P.PN ---
Subjective Date of Service: 09/08/20 Chief Complaint: Intractable abdominal pain, vomiting Subjective: Other (Patient had intractable abdominal pain. Repeat CT scan obtained. Patient given IV fluids, pain medication and medication for agitation.) Physical Examination - Vital Signs Temperature: 99.9 F Blood Pressure: 137/79 Pulse: 87 Respirations: 19 Pulse Ox (%): 96 - Studies Laboratory Data (last 24 hrs) 09/08/20 02:04: WBC 15.90 H, Hgb 16.0 D, Hct 49.4 H D, Plt Count 293 09/08/20 02:04: Sodium 140, Potassium 3.9, BUN 11, Creatinine 0.99, Glucose 103, Total Bilirubin 0.5, AST 34, ALT 83 H, Alkaline Phosphatase 32 L, Lipase 234 Assessment & Plan Discharge Plan: Home Plan to discharge in: 48 Hours Physician Review Additional Text: Physical Exam: GENERAL: The patient is a well-developed, well-nourished, in no apparent distress. Alert and oriented x3. VITAL SIGNS: Reviewed HEENT: Neck supple NECK: Supple. No carotid bruits. No lymphadenopathy or thyromegaly. LUNGS: Clear to auscultation. No crackles or wheezes are heard. HEART: Regular rate and rhythm, no appreciable gallops, rubs, murmurs or extra heart sounds ABDOMEN: Patient earlier had a severe abdominal pain. Pain out of proportion. Patient now resting in bed. EXTREMITIES: Without any cyanosis, clubbing, rash, lesions or peripheral edema. NEUROLOGIC: The patient is oriented to person, place and time. Strength and sensation are grossly intact. Face is symmetric. SKIN: Normal color, turgor and temperature. No ulcerations or rashes noted. Impression: Intractable abdominal pain, vomiting, distention secondary to suspected gastroenteritis Hypertension Plan Intractable abdominal pain, vomiting, distention secondary to suspected gastroenteritis: Repeat CT scan shows no acute abnormality. Case discussed in detail with surgery. Likely gastroenteritis. Continue with IV fluids, IV antibiotic therapy, and medication for pain. Will provide medication for constipation later today. We will continue to monitor closely. Anticipate improvement over the next 24 to 48 hours. Hypertension: Restart medication once able to take good oral intake. Code Status: Full Code DVT prophylaxis: Lovenox Advanced Care Planning-30 minutes: Plan of care for the patient's discharge was discussed in detail with the patient and family. Time Spent Managing Pts Care (In Minutes): 55
[2020-09-08] MEDS: D5 0.9 NS 1,000 ML IV SCH (17:22)
[2020-09-08] MEDS: PIPER/TAZO/NS 3.375gm 3.375 GM/100 ML BAG IVPB SCH (17:22)
[2020-09-08] MEDS ORDERED: BISACODYL 10 MG RECTAL SUPP PR ONE (19:00)
[2020-09-08] MEDS ORDERED: HYDROMORPHONE HCL 1 MG/ML INJ IV ONE (19:17)
[2020-09-08] MEDS: PANTOPRAZOLE 40 MG INJ IVP SCH (19:45)
[2020-09-09] MEDS: PIPER/TAZO/NS 3.375gm 3.375 GM/100 ML BAG IVPB SCH ×3 (00:42→17:32)
[2020-09-09] MEDS: D5 0.9 NS 1,000 ML IV SCH ×4 (04:13→23:30)
[2020-09-09] MEDS: LORazepam 2 MG/ML VIAL IV PRN (05:01)
[2020-09-09] MEDS ORDERED: HYDROMORPHONE HCL 1 MG/ML INJ IV ONE (05:08)
[2020-09-09] MEDS ORDERED: HYDROMORPHONE HCL 1 MG/ML INJ ONE (05:32)
[2020-09-09 06:05] LABS: Basophils % 0.4 % (0-1.3); Hematocrit 43.5 % (39.6-49.0); Lymphocytes % 11.7 % (15.3-44.8); MPV 8.2 fL (7.6-11.3)
[2020-09-09 06:19] LABS: Albumin 2.7 g/dL (3.4-5.0); Bilirubin Total 0.5 mg/dL (0.2-1.0); Magnesium 2.4 mg/dL (1.8-2.4); Potassium 3.9 mmol/L (3.5-5.1); Protein, Total 6.2 g/dL (6.4-8.2)
[2020-09-09] MEDS: PANTOPRAZOLE 40 MG INJ IVP SCH ×2 (09:00→20:30)
[2020-09-09] MEDS ORDERED: CEFTRIAXONE/SWI 1gm 1 GM/10 ML SYR IV SCH (09:00)
--- NOTE | 2020-09-09 09:11 | RAD REPORT ---
EXAM DESCRIPTION: RAD - Abdomen W Erect - 09/09/2020 6:12 am CLINICAL HISTORY: abd pain, eval bowel gas Pain COMPARISON: CT ANGIO ABD/PELVIS W CONTRAST dated 09/08/2020 FINDINGS: Several mildly prominent small bowel loops in the upper abdomen are noted suggesting a mil d to moderate mechanical obstruction. No pneumoperitoneum.
[2020-09-09] MEDS: DICYCLOMINE HCL 10 MG CAP PO PRN (09:19)
[2020-09-09] MEDS: ENOXAPARIN 40 MG/0.4 ML SQ SCH (09:19)
[2020-09-09] MEDS: MORPHINE 2 MG/ML SYR IV PRN (09:19)
--- NOTE | 2020-09-09 09:45 | P.PN ---
Subjective Date of Service: 09/09/20 Chief Complaint: Intractable abdominal pain, vomiting Subjective: Improving (Patient had episode of severe abdominal pain yesterday, improved with dilaudid. had a few small bowel movements overnight and is passing minimal gas.) Physical Examination - Vital Signs Temperature: 98.7 F Blood Pressure: 98/65 Pulse: 102 Respirations: 20 Pulse Ox (%): 97 - Physical Exam General: Alert, In no apparent distress, Cooperative Respiratory: Clear to auscultation bilaterally Gastrointestinal: Other (soft, mild distention, mild tympanic, no peritoneal signs, more tender in lower abdomen.) Assessment And Plan - Current Problems (Diagnosis) (1) Abdominal pain Current Visit: Yes Status: Acute Plan: - CT Angiogram did not show acute vascular issue when patient had pain out of proportion to physical exam - will get PO contrast only CT scan of abdomen and pelvis, as the appendix was not visualized on several CT scans - continue antibiotics - continue serial exams - pain control - incentive spirometry - enemas - continue medical management Physician Review Additional Text: Physical Exam: GENERAL: The patient is a well-developed, well-nourished, in no apparent distress. Alert and oriented x3. VITAL SIGNS: Reviewed HEENT: Neck supple NECK: Supple. No carotid bruits. No lymphadenopathy or thyromegaly. LUNGS: Clear to auscultation. No crackles or wheezes are heard. HEART: Regular rate and rhythm, no appreciable gallops, rubs, murmurs or extra heart sounds ABDOMEN: Patient earlier had a severe abdominal pain. Pain out of proportion. Patient now resting in bed. EXTREMITIES: Without any cyanosis, clubbing, rash, lesions or peripheral edema. NEUROLOGIC: The patient is oriented to person, place and time. Strength and sensation are grossly intact. Face is symmetric. SKIN: Normal color, turgor and temperature. No ulcerations or rashes noted. Impression: Intractable abdominal pain, vomiting, distention secondary to suspected gastroenteritis Hypertension Plan Intractable abdominal pain, vomiting, distention secondary to suspected gastroenteritis: Repeat CT scan shows no acute abnormality. Case discussed in detail with surgery. Likely gastroenteritis. Continue with IV fluids, IV antibiotic therapy, and medication for pain. Will provide medication for constipation later today. We will continue to monitor closely. Anticipate improvement over the next 24 to 48 hours. Hypertension: Restart medication once able to take good oral intake. Code Status: Full Code DVT prophylaxis: Lovenox Advanced Care Planning-30 minutes: Plan of care for the patient's discharge was discussed in detail with the patient and family.
--- NOTE | 2020-09-09 10:54 | RAD REPORT ---
EXAM DESCRIPTION: CT - Abdomen Pelvis Wo Contrast - 09/09/2020 10:32 am CLINICAL HISTORY: Abdominal pain. abdominal pain COMPARISON: CT ANGIO ABD/PELVIS W CONTRAST dated 09/08/2020 TECHNIQUE: CT imaging of the abdomen and pelvis was performed without contrast. Solid organ and vasc ular assessment is limited due to lack of IV contrast. All CT scans are performed using dose optimization technique as appropriate and may include automated exposure control or mA/KV adjustment according to patient size. FINDINGS: Mild linear subsegmental atelectasis is present in both lung bases. Mild free fluid is seen throughout the abdomen.There is significant dilatation of small bowel loops i n the upper abdomen compatible with a moderately severe mechanical bowel obstruction. There appears t o be a transition point in the central abdomen to the left of midline (image [id number]). No free air is seen. No abscess is present. No acute solid organ abnormality. The osseous structures are within normal limits. IMPRESSION: Moderately severe mechanical small bowel obstruction. A limited non-contrast examination was performed as detailed.
[2020-09-09] MEDS ORDERED: HYDROMORPHONE HCL 1 MG/ML INJ IV PRN (11:00)
[2020-09-09] MEDS ORDERED: NA CHLORIDE 0.9% 1,000 ML IV ONE (11:57)
--- NOTE | 2020-09-09 12:05 | P.PN ---
Subjective Date of Service: 09/09/20 Primary Care Provider: Dr. Moise Chief Complaint: Intractable abdominal pain, vomiting Subjective: Other (Patient with abdominal pain. Patient had minimal bowel movement. No passage of gas.) Physical Examination - Vital Signs Temperature: 98.7 F Blood Pressure: 98/65 Pulse: 102 Respirations: 20 Pulse Ox (%): 97 Assessment & Plan Discharge Plan: Home Plan to discharge in: 72 Hours Physician Review Additional Text: Physical Exam: GENERAL: Patient reported pain to the abdominal region. VITAL SIGNS: Reviewed HEENT: Neck supple NECK: Supple. No carotid bruits. No lymphadenopathy or thyromegaly. LUNGS: Clear to auscultation. No crackles or wheezes are heard. HEART: Regular rate and rhythm, no appreciable gallops, rubs, murmurs or extra heart sounds ABDOMEN: Pain to the abdominal region, diffuse pain. Slight distention. EXTREMITIES: Without any cyanosis, clubbing, rash, lesions or peripheral edema. NEUROLOGIC: The patient is oriented to person, place and time. Strength and sensation are grossly intact. Face is symmetric. SKIN: Normal color, turgor and temperature. No ulcerations or rashes noted. Impression: Intractable abdominal pain, vomiting, distention secondary to moderate to severe mechanical small bowel obstruction Hypertension Plan Intractable abdominal pain, vomiting, distention secondary to moderate to severe mechanical small bowel obstruction: Case discussed with surgery. CT scan reviewed. Repeat CT scan shows moderate to severe mechanical small bowel obstruction. Surgery recommends NG tube placement. Patient agrees. NG tube to be inserted with low intermittent suction. Will adjust IV pain medication. Provide breakthrough IV medication as well. Continue aggressive IV fluids. Will give fluid bolus now. Encourage ambulation with assistance. Continue monitor serial abdominal exams. If no significant change or improvement patient may require surgical intervention. Anticipate improvement over the next 48-72 hr. Hypertension: Hold medication for now. Will provide medication IV if needed. Code Status: Full Code DVT prophylaxis: Lovenox Advanced Care Planning-30 minutes: Plan of care for the patient's discharge was discussed in detail with the patient and family. Patient desires to go home at discharge. Time Spent Managing Pts Care (In Minutes): 55
--- NOTE | 2020-09-09 14:12 | RAD REPORT ---
EXAM DESCRIPTION: RAD - Chest Single View - 09/09/2020 2:06 pm CLINICAL HISTORY: Device placement nasogastric tube placement IMPRESSION: Nasogastric tube has been placed 2.5 centimeters into the stomach.
[2020-09-09] MEDS: HYDROMORPHONE HCL 1 MG/ML INJ IV PRN ×3 (15:48→23:33)
[2020-09-10] MEDS: PIPER/TAZO/NS 3.375gm 3.375 GM/100 ML BAG IVPB SCH ×3 (00:09→17:01)
[2020-09-10] MEDS: LORazepam 2 MG/ML VIAL IV PRN (02:31)
[2020-09-10] MEDS: HYDROMORPHONE HCL 1 MG/ML INJ IV PRN ×3 (04:14→20:53)
[2020-09-10 06:12] LABS: Basophils % 0.4 % (0-1.3); Lymphocytes % 11.9 % (15.3-44.8); MPV 7.9 fL (7.6-11.3); RBC Red Blood Cell Count 4.87 M/uL (4.33-5.43)
[2020-09-10 06:25] LABS: Albumin 2.7 g/dL (3.4-5.0); Bilirubin Total 0.4 mg/dL (0.2-1.0); Magnesium 2.3 mg/dL (1.8-2.4); Potassium 3.6 mmol/L (3.5-5.1); Protein, Total 5.9 g/dL (6.4-8.2)
--- NOTE | 2020-09-10 08:09 | RAD REPORT ---
EXAM DESCRIPTION: RAD - Abdomen 1 View (KUB) - 09/10/2020 7:01 am CLINICAL HISTORY: Abdomen pain. FINDINGS: Multiple small bowel loops remain moderately dilated with diminished air in the colon cons istent with a mechanical obstruction. No significant change since September 09, 2020 Tip of a nasogastric tube lies 17 millimeters from the GE junction
[2020-09-10] MEDS: PANTOPRAZOLE 40 MG INJ IVP SCH ×2 (09:00→20:53)
[2020-09-10] MEDS ORDERED: KCL 20 MEQ/100 mL IVPB 20 MEQ/100 ML BAG IV SCH (09:00)
[2020-09-10] MEDS: ENOXAPARIN 40 MG/0.4 ML SQ SCH (09:01)
--- NOTE | 2020-09-10 12:45 | P.PN ---
Subjective Date of Service: 09/10/20 Primary Care Provider: Dr. Moise Chief Complaint: Intractable abdominal pain, vomiting Subjective: Other (Patient reports pain improved. Still no significant passage of gas or stool.) Physical Examination - Vital Signs Temperature: 99.3 F Blood Pressure: 149/81 Pulse: 87 Respirations: 19 Pulse Ox (%): 96 Assessment & Plan Discharge Plan: Home Plan to discharge in: 48 Hours Physician Review Additional Text: Physical Exam: GENERAL: Pain improved. Still no significant passage of gas or stool. NG tube in place. VITAL SIGNS: Reviewed HEENT: Neck supple. NG tube in place NECK: Supple. No carotid bruits. No lymphadenopathy or thyromegaly. LUNGS: Clear to auscultation. No crackles or wheezes are heard. HEART: Regular rate and rhythm, no appreciable gallops, rubs, murmurs or extra heart sounds ABDOMEN: Pain to the abdomen significantly improved. No significant distention. EXTREMITIES: Without any cyanosis, clubbing, rash, lesions or peripheral edema. NEUROLOGIC: The patient is oriented to person, place and time. Strength and sensation are grossly intact. Face is symmetric. SKIN: Normal color, turgor and temperature. No ulcerations or rashes noted. Impression: Intractable abdominal pain, vomiting, distention secondary to moderate to severe mechanical small bowel obstruction Hypertension Plan Intractable abdominal pain, vomiting, distention secondary to moderate to severe mechanical small bowel obstruction: Pain to the abdomen and approved. KUB still shows no significant improvement. Patient reports no significant passage of stool or gas. Continue NG tube. Continue IV medication and IV antibiotic therapy. NG tube remains to intermittent suction. Encourage ambulation. Encourage incentive spirometer. Continue monitor serial abdominal exams. If no significant change or improvement patient may require surgical intervention. Will discuss further with surgery. Anticipate improvement over the next 48-72 hr. Hypertension: Hold medication for now. Will provide medication IV if needed. Code Status: Full Code DVT prophylaxis: Lovenox Advanced Care Planning-30 minutes: Plan of care for the patient's discharge was discussed in detail with the patient and family. Patient desires to go home at discharge. Time Spent Managing Pts Care (In Minutes): 55
[2020-09-10] MEDS: HYDROMORPHONE HCL 0.5 MG/0.5 ML INJ IV PRN ×2 (13:05→17:02)
[2020-09-10] MEDS: D5 0.9 NS 1,000 ML IV SCH ×3 (16:00→23:22)
[2020-09-11] MEDS: PIPER/TAZO/NS 3.375gm 3.375 GM/100 ML BAG IVPB SCH ×3 (00:08→17:20)
[2020-09-11] MEDS: HYDROMORPHONE HCL 1 MG/ML INJ IV PRN ×5 (00:59→21:21)
[2020-09-11 06:17] LABS: Potassium 3.2 mmol/L (3.5-5.1)
--- NOTE | 2020-09-11 07:36 | RAD REPORT ---
EXAM DESCRIPTION: RAD - Abdomen 1 View (KUB) - 09/11/2020 7:00 am CLINICAL HISTORY: follow up SBO COMPARISON: Abdomen 1 View (KUB) dated 09/10/2020; Abdomen 1 View (KUB) dated 09/08/2020 FINDINGS: Tip of the NG/OG tube is in the distal esophagus, unchanged. Multiple dilated small bowel loops present showing only a slight improvement from September 10. No free air or pneumatosis. Oral contras t administered for the September 09 CT study is in the colon extending from cecum to left-sided transverse colon. Contrast has increased density indicating for the movement of the small bowel. There has been little or no antegrade movement of the contrast column in the right-side of the colon. No significant bony findings IMPRESSION: Multiple dilated small bowel loops showing only slight improvement from September 10 imaging. No free air or pneumatosis. Additional small bowel contrast from the September 09 study has reached the colon but there has been little or no antegrade movement of the contrast column filling the right-side of the colon.
[2020-09-11] MEDS: PANTOPRAZOLE 40 MG INJ IVP SCH ×2 (08:36→20:18)
[2020-09-11] MEDS: KCL 20 MEQ/100 mL IVPB 20 MEQ/100 ML BAG IV SCH ×2 (08:36→09:57)
[2020-09-11] MEDS: LORazepam 2 MG/ML VIAL IV PRN (08:36)
[2020-09-11] MEDS: ENOXAPARIN 40 MG/0.4 ML SQ SCH (08:36)
--- NOTE | 2020-09-11 09:34 | RAD REPORT ---
EXAM DESCRIPTION: RAD - Abdomen 1 View (KUB) - 09/11/2020 9:25 am CLINICAL HISTORY: ngt advancement or repositioning COMPARISON: KUB same date FINDINGS: NG/OG tube has been advanced from the distal esophagus into the stomach. Tube is not well positioned with no bend or kink of the tubing.
[2020-09-11] MEDS: BISACODYL 10 MG RECTAL SUPP PR SCH (10:57)
--- NOTE | 2020-09-11 11:26 | P.PN ---
Subjective Date of Service: 09/11/20 Primary Care Provider: Dr. Moise Chief Complaint: Intractable abdominal pain, vomiting Subjective: Improving (Patient reports passage of some stool and gas last night. Pain improved.) Physical Examination - Vital Signs Temperature: 98.9 F Blood Pressure: 148/76 Pulse: 89 Respirations: 17 Pulse Ox (%): 98 Assessment & Plan Discharge Plan: Home Plan to discharge in: 72 Hours Physician Review Additional Text: Follow up KUB: FINDINGS: Tip of the NG/OG tube is in the distal esophagus, unchanged. Multiple dilated small bowel loops present showing only a slight improvement from September 10. No free air or pneumatosis. Oral contrast administered for the September 09 CT study is in the colon extending from cecum to left-sided transverse colon. Contrast has increased density indicating for the movement of the small bowel. There has been little or no antegrade movement of the contrast column in the right-side of the colon. No significant bony findings IMPRESSION: Multiple dilated small bowel loops showing only slight improvement from September 10 imaging. No free air or pneumatosis. Additional small bowel contrast from the September 09 study has reached the colon but there has been little or no antegrade movement of the contrast column filling the right-side of the colon. Physical Exam: GENERAL: Pain improved. Still no significant passage of gas or stool. NG tube in place. VITAL SIGNS: Reviewed HEENT: Neck supple. NG tube in place NECK: Supple. No carotid bruits. No lymphadenopathy or thyromegaly. LUNGS: Clear to auscultation. No crackles or wheezes are heard. HEART: Regular rate and rhythm, no appreciable gallops, rubs, murmurs or extra heart sounds ABDOMEN: Pain to the abdomen improved. No significant distention. EXTREMITIES: Without any cyanosis, clubbing, rash, lesions or peripheral edema. NEUROLOGIC: The patient is oriented to person, place and time. Strength and sensation are grossly intact. Face is symmetric. SKIN: Normal color, turgor and temperature. No ulcerations or rashes noted. Impression: Intractable abdominal pain, vomiting, distention secondary to moderate to severe mechanical small bowel obstruction Hypertension Plan Intractable abdominal pain, vomiting, distention secondary to moderate to severe mechanical small bowel obstruction: Patient overall improved. Patient reports some passage of some stool and gas. Patient ambulating. KUB shows some improvement in small-bowel obstruction. Small amount of contrast has made it to the colon. Spoke with surgery. Continue monitor the patient closely. Surgery plans for 6 hr clamp trial. If improved he will consider removal of NG tube. If the patient does not improve surgical intervention may still need to be considered. Encourage ambulation. Encourage incentive spirometer. Patient on DVT prophylaxis. Anticipate continued improvement over the next 48-72 hr. I will turn the service over to the hospitalist team tomorrow. I will go plan of care with him. Hypertension: Hold medication for now. Will provide medication IV if needed. Code Status: Full Code DVT prophylaxis: Lovenox Advanced Care Planning-30 minutes: Plan of care for the patient's discharge was discussed in detail with the patient and family. Patient desires to go home at discharge. Time Spent Managing Pts Care (In Minutes): 55
[2020-09-11] MEDS: D5 0.9 NS 1,000 ML IV SCH ×3 (12:32→20:18)
[2020-09-11] MEDS ORDERED: FLEET ENEMA ADULT PR ONE (14:11)
[2020-09-11] MEDS ORDERED: KCL 20 MEQ/100 mL IVPB 20 MEQ/100 ML BAG IV ONE (20:00)
[2020-09-12] MEDS: PIPER/TAZO/NS 3.375gm 3.375 GM/100 ML BAG IVPB SCH ×3 (00:12→16:46)
[2020-09-12] MEDS: LORazepam 2 MG/ML VIAL IV PRN (02:08)
[2020-09-12] MEDS: D5 0.9 NS 1,000 ML IV SCH ×4 (04:25→16:00)
[2020-09-12 04:38] LABS: BUN Blood Urea Nitrogen 4 mg/dL (7-18); Bicarbonate 25 mmol/L (21-32); Glucose Level 102 mg/dL (74-106); Potassium 3.5 mmol/L (3.5-5.1); Sodium Level 142 mmol/L (136-145)
[2020-09-12] MEDS ORDERED: KCL 20 MEQ/100 mL IVPB 20 MEQ/100 ML BAG IV SCH (06:00)
[2020-09-12] MEDS: HYDROMORPHONE HCL 1 MG/ML INJ IV PRN ×3 (06:23→21:06)
[2020-09-12] MEDS: ENOXAPARIN 40 MG/0.4 ML SQ SCH (09:00)
[2020-09-12] MEDS: PANTOPRAZOLE 40 MG INJ IVP SCH ×2 (10:25→21:04)
[2020-09-12] MEDS: HYDROCODONE/APAP 7.5/325 MG TAB PO PRN (11:20)
--- NOTE | 2020-09-12 14:42 | P.PN ---
Subjective Date of Service: 09/12/20 Patient is clinically doing much better. He is tolerating diet. Patient denies any new complaints. Review of Systems 10-point ROS is otherwise unremarkable Physical Examination - Vital Signs Temperature: 98.9 F Blood Pressure: 135/77 Pulse: 80 Respirations: 18 Pulse Ox (%): 96 - Physical Exam General: Alert, In no apparent distress, Oriented x3 Respiratory: Clear to auscultation bilaterally, Normal air movement Cardiovascular: Regular rate/rhythm, Normal S1 S2, No murmurs Gastrointestinal: Normal bowel sounds, Soft and benign, Non-distended, No tenderness Musculoskeletal: No clubbing, No swelling, No tenderness Neurological: Sensation intact, Cranial nerves 3-12 intact - Studies Medications List Reviewed: Yes Assessment & Plan - Problems (Diagnosis) (1) Small bowel obstruction Current Visit: Yes Status: Acute (2) Intractable nausea and vomiting Current Visit: Yes Status: Acute (3) Abdominal pain Current Visit: Yes Status: Acute - Plan Plan: 1. Symptoms are improved. Patient's pain is improved. He is tolerating diet. If he continues to do well. Anticipate discharge in the morning. Patient will need outpatient colonoscopy the next 6-12 weeks. Continue with plan of care as recommended per General surgery. - Advance Directives Does patient have a Living Will: No Does patient have a Durable POA for Healthcare: No - Code Status/Comfort Care Code Status Assessed: Yes Code Status: Full Code Critical Care: No Time Spent Managing PTS Care (In Minutes): 35
[2020-09-13] MEDS: PIPER/TAZO/NS 3.375gm 3.375 GM/100 ML BAG IVPB SCH ×2 (00:10→09:35)
[2020-09-13] MEDS: D5 0.9 NS 1,000 ML IV SCH (00:11)
[2020-09-13 01:29] VITALS: O2SAT 98
[2020-09-13 06:19] LABS: Basophils % 0.3 % (0-1.3); Hematocrit 40.3 % (39.6-49.0); Lymphocytes % 14.2 % (15.3-44.8); MPV 7.5 fL (7.6-11.3); RBC Red Blood Cell Count 4.79 M/uL (4.33-5.43)
[2020-09-13 06:32] LABS: Potassium 3.6 mmol/L (3.5-5.1)
--- NOTE | 2020-09-13 08:09 | RAD REPORT ---
EXAM DESCRIPTION: RAD - Abdomen W Erect - 09/13/2020 6:10 am CLINICAL HISTORY: Abdominal pain FINDINGS: Free air is not seen beneath the diaphragm. Some of the small bowel loops have mildly diminished in caliber while others are unchanged. Contrast is present within the colon. Mild improvement in the mechanical small bowel obstruction.
[2020-09-13] MEDS ORDERED: POTASSIUM CL SA 10 MEQ TAB PO ONE (09:00)
[2020-09-13] MEDS: ENOXAPARIN 40 MG/0.4 ML SQ SCH (09:00)
[2020-09-13] MEDS: BISACODYL 10 MG RECTAL SUPP PR SCH (09:00)
[2020-09-13] MEDS: PANTOPRAZOLE 40 MG INJ IVP SCH (09:40)
--- NOTE | 2020-09-13 18:37 | P.PN ---
Subjective Date of Service: 09/10/20 Primary Care Provider: Dr. Moise Chief Complaint: Intractable abdominal pain, vomiting Subjective: Improving (slow improvement, no bowel movement, pain improving.) Physical Examination - Vital Signs Temperature: 98.3 F Blood Pressure: 135/83 Pulse: 66 Respirations: 16 Pulse Ox (%): 97 - Physical Exam General: Alert, In no apparent distress HEENT: Mucous membr. moist/pink Neck: Other (NGT in place) Respiratory: Clear to auscultation bilaterally Cardiovascular: Regular rate/rhythm Gastrointestinal: Other (soft, mild appropriate TTP, mild distention, no peritonitis) - Studies Medications List Reviewed: Yes Assessment And Plan - Current Problems (Diagnosis) (1) Abdominal pain Status: Acute Plan: - CT Angiogram did not show acute vascular issue when patient had pain out of proportion to physical exam - CT PO did not show appendicits, only SBO - continue antibiotics - continue serial exams - pain control - incentive spirometry - enemas - continue medical management Physician Review Additional Text: Follow up KUB: FINDINGS: Tip of the NG/OG tube is in the distal esophagus, unchanged. Multiple dilated small bowel loops present showing only a slight improvement from September 10. No free air or pneumatosis. Oral contrast administered for the September 09 CT study is in the colon extending from cecum to left-sided transverse colon. Contrast has increased density indicating for the movement of the small bowel. There has been little or no antegrade movement of the contrast column in the right-side of the colon. No significant bony findings IMPRESSION: Multiple dilated small bowel loops showing only slight improvement from September 10 imaging. No free air or pneumatosis. Additional small bowel contrast from the September 09 study has reached the colon but there has been little or no antegrade movement of the contrast column filling the right-side of the colon. Physical Exam: GENERAL: Pain improved. Still no significant passage of gas or stool. NG tube in place. VITAL SIGNS: Reviewed HEENT: Neck supple. NG tube in place NECK: Supple. No carotid bruits. No lymphadenopathy or thyromegaly. LUNGS: Clear to auscultation. No crackles or wheezes are heard. HEART: Regular rate and rhythm, no appreciable gallops, rubs, murmurs or extra heart sounds ABDOMEN: Pain to the abdomen improved. No significant distention. EXTREMITIES: Without any cyanosis, clubbing, rash, lesions or peripheral edema. NEUROLOGIC: The patient is oriented to person, place and time. Strength and sensation are grossly intact. Face is symmetric. SKIN: Normal color, turgor and temperature. No ulcerations or rashes noted. Impression: Intractable abdominal pain, vomiting, distention secondary to moderate to severe mechanical small bowel obstruction Hypertension Plan Intractable abdominal pain, vomiting, distention secondary to moderate to severe mechanical small bowel obstruction: Patient overall improved. Patient reports some passage of some stool and gas. Patient ambulating. KUB shows some improvement in small-bowel obstruction. Small amount of contrast has made it to the colon. Spoke with surgery. Continue monitor the patient closely. Surgery plans for 6 hr clamp trial. If improved he will consider removal of NG tube. If the patient does not improve surgical intervention may still need to be considered. Encourage ambulation. Encourage incentive spirometer. Patient on DVT prophylaxis. Anticipate continued improvement over the next 48-72 hr. I will turn the service over to the hospitalist team tomorrow. I will go plan of care with him. Hypertension: Hold medication for now. Will provide medication IV if needed. Code Status: Full Code DVT prophylaxis: Lovenox Advanced Care Planning-30 minutes: Plan of care for the patient's discharge was discussed in detail with the patient and family. Patient desires to go home at discharge.
--- NOTE | 2020-09-13 18:39 | P.PN ---
Subjective Date of Service: 09/11/20 Primary Care Provider: Dr. Moise Chief Complaint: Intractable abdominal pain, vomiting Subjective: Improving (slow improvement, pain improving but not resolved, passing small amount of gas, ambulatory) Physical Examination - Vital Signs Temperature: 98.3 F Blood Pressure: 135/83 Pulse: 66 Respirations: 16 Pulse Ox (%): 97 - Physical Exam General: Alert, In no apparent distress, Cooperative HEENT: Mucous membr. moist/pink, Other (NGT in place) Respiratory: Clear to auscultation bilaterally Cardiovascular: Regular rate/rhythm Gastrointestinal: Other (soft, mild improved TTP, mild distention, no peritonitis) - Studies Medications List Reviewed: Yes Assessment And Plan - Current Problems (Diagnosis) (1) Abdominal pain Status: Acute Plan: - CT Angiogram did not show acute vascular issue when patient had pain out of proportion to physical exam - CT PO did not show appendicitis, only SBO - continue antibiotics - continue serial exams - pain control - incentive spirometry - enemas - continue medical management - DC NGT Physician Review Additional Text: Follow up KUB: FINDINGS: Tip of the NG/OG tube is in the distal esophagus, unchanged. Multiple dilated small bowel loops present showing only a slight improvement from September 10. No free air or pneumatosis. Oral contrast administered for the September 09 CT study is in the colon extending from cecum to left-sided transverse colon. Contrast has increased density indicating for the movement of the small bowel. There has been little or no antegrade movement of the contrast column in the right-side of the colon. No significant bony findings IMPRESSION: Multiple dilated small bowel loops showing only slight improvement from September 10 imaging. No free air or pneumatosis. Additional small bowel contrast from the September 09 study has reached the colon but there has been little or no antegrade movement of the contrast column filling the right-side of the colon. Physical Exam: GENERAL: Pain improved. Still no significant passage of gas or stool. NG tube in place. VITAL SIGNS: Reviewed HEENT: Neck supple. NG tube in place NECK: Supple. No carotid bruits. No lymphadenopathy or thyromegaly. LUNGS: Clear to auscultation. No crackles or wheezes are heard. HEART: Regular rate and rhythm, no appreciable gallops, rubs, murmurs or extra heart sounds ABDOMEN: Pain to the abdomen improved. No significant distention. EXTREMITIES: Without any cyanosis, clubbing, rash, lesions or peripheral edema. NEUROLOGIC: The patient is oriented to person, place and time. Strength and sensation are grossly intact. Face is symmetric. SKIN: Normal color, turgor and temperature. No ulcerations or rashes noted. Impression: Intractable abdominal pain, vomiting, distention secondary to moderate to severe mechanical small bowel obstruction Hypertension Plan Intractable abdominal pain, vomiting, distention secondary to moderate to severe mechanical small bowel obstruction: Patient overall improved. Patient reports some passage of some stool and gas. Patient ambulating. KUB shows some improvement in small-bowel obstruction. Small amount of contrast has made it to the colon. Spoke with surgery. Continue monitor the patient closely. Surgery plans for 6 hr clamp trial. If improved he will consider removal of NG tube. If the patient does not improve surgical intervention may still need to be considered. Encourage ambulation. Encourage incentive spirometer. Patient on DVT prophylaxis. Anticipate continued improvement over the next 48-72 hr. I will turn the service over to the hospitalist team tomorrow. I will go plan of care with him. Hypertension: Hold medication for now. Will provide medication IV if needed. Code Status: Full Code DVT prophylaxis: Lovenox Advanced Care Planning-30 minutes: Plan of care for the patient's discharge was discussed in detail with the patient and family. Patient desires to go home at discharge.
--- NOTE | 2020-09-13 18:40 | P.PN ---
Subjective Date of Service: 09/12/20 Primary Care Provider: Dr. Moise Chief Complaint: Intractable abdominal pain, vomiting Subjective: Improving (Continues to improve, + BM, +gas, ambulatory) Physical Examination - Vital Signs Temperature: 98.3 F Blood Pressure: 135/83 Pulse: 66 Respirations: 16 Pulse Ox (%): 97 - Physical Exam General: Alert, In no apparent distress, Cooperative Respiratory: Normal air movement Cardiovascular: Regular rate/rhythm Gastrointestinal: Soft and benign, Non-distended, No ascites, No tenderness, No masses, No rebound, No guarding - Studies Medications List Reviewed: Yes Assessment And Plan - Current Problems (Diagnosis) (1) Abdominal pain Status: Acute Plan: - CT Angiogram did not show acute vascular issue when patient had pain out of proportion to physical exam - CT PO did not show appendicitis, only SBO - continue antibiotics - continue serial exams - pain control - incentive spirometry - enemas - continue medical management - DC NGT - start clears Physician Review Additional Text: Follow up KUB: FINDINGS: Tip of the NG/OG tube is in the distal esophagus, unchanged. Multiple dilated small bowel loops present showing only a slight improvement from September 10. No free air or pneumatosis. Oral contrast administered for the September 09 CT study is in the colon extending from cecum to left-sided transverse colon. Contrast has increased density indicating for the movement of the small bowel. There has been little or no antegrade movement of the contrast column in the right-side of the colon. No significant bony findings IMPRESSION: Multiple dilated small bowel loops showing only slight improvement from September 10 imaging. No free air or pneumatosis. Additional small bowel contrast from the September 09 study has reached the colon but there has been little or no antegrade movement of the contrast column filling the right-side of the colon. Physical Exam: GENERAL: Pain improved. Still no significant passage of gas or stool. NG tube in place. VITAL SIGNS: Reviewed HEENT: Neck supple. NG tube in place NECK: Supple. No carotid bruits. No lymphadenopathy or thyromegaly. LUNGS: Clear to auscultation. No crackles or wheezes are heard. HEART: Regular rate and rhythm, no appreciable gallops, rubs, murmurs or extra heart sounds ABDOMEN: Pain to the abdomen improved. No significant distention. EXTREMITIES: Without any cyanosis, clubbing, rash, lesions or peripheral edema. NEUROLOGIC: The patient is oriented to person, place and time. Strength and sensation are grossly intact. Face is symmetric. SKIN: Normal color, turgor and temperature. No ulcerations or rashes noted. Impression: Intractable abdominal pain, vomiting, distention secondary to moderate to severe mechanical small bowel obstruction Hypertension Plan Intractable abdominal pain, vomiting, distention secondary to moderate to severe mechanical small bowel obstruction: Patient overall improved. Patient reports some passage of some stool and gas. Patient ambulating. KUB shows some improvement in small-bowel obstruction. Small amount of contrast has made it to the colon. Spoke with surgery. Continue monitor the patient closely. Surgery plans for 6 hr clamp trial. If improved he will consider removal of NG tube. If the patient does not improve surgical intervention may still need to be considered. Encourage ambulation. Encourage incentive spirometer. Patient on DVT prophylaxis. Anticipate continued improvement over the next 48-72 hr. I will turn the service over to the hospitalist team tomorrow. I will go plan of care with him. Hypertension: Hold medication for now. Will provide medication IV if needed. Code Status: Full Code DVT prophylaxis: Lovenox Advanced Care Planning-30 minutes: Plan of care for the patient's discharge was discussed in detail with the patient and family. Patient desires to go home at discharge.
--- NOTE | 2020-09-13 18:42 | P.PN ---
Subjective Date of Service: 09/13/20 Primary Care Provider: Dr. Moise Chief Complaint: Intractable abdominal pain, vomiting Subjective: Improving (tolerated diet, pain free, passing gas, +BM) Physical Examination - Vital Signs Temperature: 98.3 F Blood Pressure: 135/83 Pulse: 66 Respirations: 16 Pulse Ox (%): 97 - Physical Exam General: Alert, In no apparent distress, Cooperative HEENT: Mucous membr. moist/pink Respiratory: Normal air movement Cardiovascular: Regular rate/rhythm Gastrointestinal: Soft and benign, Non-distended, No ascites, No tenderness, No masses, No rebound, No guarding - Studies Medications List Reviewed: Yes Assessment And Plan - Current Problems (Diagnosis) (1) Abdominal pain Status: Acute Plan: - CT Angiogram did not show acute vascular issue when patient had pain out of proportion to physical exam - CT PO did not show appendicitis, only SBO - continue serial exams - incentive spirometry - enemas - continue medical management - Advance diet, if toleated can DC home, follow up in 1 week Physician Review Additional Text: Follow up KUB: FINDINGS: Tip of the NG/OG tube is in the distal esophagus, unchanged. Multiple dilated small bowel loops present showing only a slight improvement from September 10. No free air or pneumatosis. Oral contrast administered for the September 09 CT study is in the colon extending from cecum to left-sided transverse colon. Contrast has increased density indicating for the movement of the small bowel. There has been little or no antegrade movement of the contrast column in the right-side of the colon. No significant bony findings IMPRESSION: Multiple dilated small bowel loops showing only slight improvement from September 10 imaging. No free air or pneumatosis. Additional small bowel contrast from the September 09 study has reached the colon but there has been little or no antegrade movement of the contrast column filling the right-side of the colon. Physical Exam: GENERAL: Pain improved. Still no significant passage of gas or stool. NG tube in place. VITAL SIGNS: Reviewed HEENT: Neck supple. NG tube in place NECK: Supple. No carotid bruits. No lymphadenopathy or thyromegaly. LUNGS: Clear to auscultation. No crackles or wheezes are heard. HEART: Regular rate and rhythm, no appreciable gallops, rubs, murmurs or extra heart sounds ABDOMEN: Pain to the abdomen improved. No significant distention. EXTREMITIES: Without any cyanosis, clubbing, rash, lesions or peripheral edema. NEUROLOGIC: The patient is oriented to person, place and time. Strength and sensation are grossly intact. Face is symmetric. SKIN: Normal color, turgor and temperature. No ulcerations or rashes noted. Impression: Intractable abdominal pain, vomiting, distention secondary to moderate to severe mechanical small bowel obstruction Hypertension Plan Intractable abdominal pain, vomiting, distention secondary to moderate to severe mechanical small bowel obstruction: Patient overall improved. Patient reports some passage of some stool and gas. Patient ambulating. KUB shows some improvement in small-bowel obstruction. Small amount of contrast has made it to the colon. Spoke with surgery. Continue monitor the patient closely. Surgery plans for 6 hr clamp trial. If improved he will consider removal of NG tube. If the patient does not improve surgical intervention may still need to be considered. Encourage ambulation. Encourage incentive spirometer. Patient on DVT prophylaxis. Anticipate continued improvement over the next 48-72 hr. I will turn the service over to the hospitalist team tomorrow. I will go plan of care with him. Hypertension: Hold medication for now. Will provide medication IV if needed. Code Status: Full Code DVT prophylaxis: Lovenox Advanced Care Planning-30 minutes: Plan of care for the patient's discharge was discussed in detail with the patient and family. Patient desires to go home at discharge.
[2020-09-19 03:48] VITALS: BP 135/77; TEMP 98.9
--- NOTE | 2020-09-19 03:50 | P.DS ---
Discharge Date: 09/13/20 Primary Care Provider: Dr. Moise Disposition: ROUTINE DISCHARGE Discharge Condition: GOOD Reason for Admission: Intractable abdominal pain, vomiting Consultations: General surgeon - Problems (1) Small bowel obstruction Status: Acute (2) Intractable nausea and vomiting Status: Acute (3) Abdominal pain Status: Acute Brief History of Present Illness: Patient is a 50-year-old male with history of hypertension presents emergency department for abdominal pain, vomiting. Patient was seen earlier today for similar symptoms and noted to have leukocytosis, patient had ultrasound and CT abdomen pelvis with contrast which were both negative for any acute findings. Patient elected to leave against medical advice at that time and tried to rest at home. Patient did okay throughout the day but this evening began having severe abdominal pain again along with vomiting. Patient reports severe spasm/cramping like pain throughout the abdomen as well as abdominal distension. Patient again evaluated the emergency department, labs significant for white blood cell count 15.9 GFR 79 KUB obtained which is pending radiology interpretation at this time. ED provider wishes to admit patient for leukocytosis, intractable abdominal pain/vomiting and distention. Hospital Course: Patient has done well during hospital stay. Small-bowel obstruction is really. Patient's pain is resolved. Patient tolerating diet at this time. T's patient moving bowels chief in no longer having any nausea and vomiting. At this time, patient is stable for discharge home. Vital Signs/Physical Exam: Temp Pulse Resp BP Pulse Ox 98.9 F 80 18 135/77 96 09/19/20 03:48 09/19/20 03:48 09/19/20 03:48 09/19/20 03:48 09/19/20 03:48 General: Alert, In no apparent distress, Oriented x3 Laboratory Data at Discharge: WBC 6.90 K/uL (4.3-10.9) D 09/13/20 06:03 Hgb 13.2 g/dL (13.6-17.9) L 09/13/20 06:03 Hct 40.3 % (39.6-49.0) 09/13/20 06:03 Plt Count 274 K/uL (152-406) 09/13/20 06:03 Sodium 143 mmol/L (136-145) 09/13/20 06:03 Potassium 3.6 mmol/L (3.5-5.1) 09/13/20 06:03 BUN 6 mg/dL (7-18) L 09/13/20 06:03 Creatinine 0.99 mg/dL (0.55-1.3) 09/13/20 06:03 Glucose 87 mg/dL (74-106) 09/13/20 06:03 Magnesium 2.3 mg/dL (1.8-2.4) 09/10/20 05:33 Total Bilirubin 0.4 mg/dL (0.2-1.0) 09/10/20 05:33 AST 19 U/L (15-37) 09/10/20 05:33 ALT 52 U/L (12-78) 09/10/20 05:33 Alkaline Phosphatase 25 U/L (45-117) L 09/10/20 05:33 Lipase 234 U/L (73-393) 09/08/20 02:04 Home Medications: ALPRAZolam [Xanax*] 0.5 mg PO DAILY PRN 09/08/20 Alfuzosin HCl 10 mg PO DAILY 09/08/20 Anastrozole 1 mg PO EVERY 7TH DAY 09/08/20 Cabergoline 1 tab PO EVERY 3RD DAY 09/08/20 Dexlansoprazole [Dexilant] 60 mg PO DAILY 09/08/20 Finasteride 5 mg PO DAILY 09/08/20 Losartan Potassium 50 mg PO DAILY 09/08/20 Metoprolol Succinate 50 mg PO DAILY 09/08/20 Mirabegron [Myrbetriq] 50 mg PO DAILY 09/08/20 Nitroglycerin [Nitrostat*] 1 tab SL PRN PRN 09/08/20 Pantoprazole [Protonix Tab*] 40 mg PO DAILY 09/08/20 Testosterone Cypionate [Testone Cik] 0.4 ml IM EVERY 3RD DAY 09/08/20 Amox/Clavulanate [Augmentin 875-125 Tab] 1 each PO BID #10 tab 09/13/20 New Medications: Amox/Clavulanate [Augmentin 875-125 Tab] 1 each PO BID #10 tab Physician Discharge Instructions: OK TO DC IV AND DC HOME FOLLOW-UP WITH PRIMARY CARE PROVIDER IN 1-2 WEEKS FOLLOW-UP WITH Surgery IN 1-2 WEEKS RETURN TO THE ER IF symptoms worsen CALL or TEXT DR. YORK AT [phone] IF ANY QUESTIONS REGARDING HOSPITAL STAY. PLEASE CALL THE FLOOR AT [phone] IF ANY MEDICATION OR NURSING QUESTIONS. Diet: AHA Activity: Fall precautions Followup: Jamar Chao MD [ACTIVE - CAN ADMIT] - 1-2 Weeks (surgeon- call to schedule an appointment) Unknown,U [Primary Care Provider] - Time spent managing pt's care (in minutes): 35
== END 2020-09-13 15:00 | disposition home or self-care (01) | DRG 390 ==
LOC: ER 01:35 → ERHOLD 05:05 → 2ND 08:23 → OBSVTOIN 13:28
PROVIDERS: ADMIT Family Medicine; ATTEND Hospitalist
DX: K56.609 Unspecified intestinal obstruction, unspecified as to partial versus complete obstruction (principal); I10 Essential (primary) hypertension; F41.9 Anxiety disorder, unspecified; K59.00 Constipation, unspecified; D72.829 Elevated white blood cell count, unspecified; Z96.21 Cochlear implant status; Z88.1 Allergy status to other antibiotic agents; Z79.899 Other long term (current) drug therapy; Z20.822 Contact with and (suspected) exposure to COVID-19
CPT/HCPCS: 36415; 71045; 74018; 74019; 74174; 74176; 80048; 80053; 80076; 81003; 81015; 83615; 83690; 83735; 84132; 84145; 85025; 99285; C9113; J0696; J1170; J1650; J2270; J2405; J2543; J3480; J7030; J7042; Q9967; U0003